=== PATIENT | female | born 1975 | race Caucasian/White ===

== ENCOUNTER 2017-12-27 22:21 | Emergency (ER) | payer SELFPAY ==
[~2017-12-27] VITALS: Ht 162.6 cm; Wt 68.0 kg
[~2017-12-27 22:21] MED LIST: AMOX500C2 PO; BELLADONNA ALKALOIDS; CLAR-19 PO; DEPO PROVERA; HYDR-3454 PO; HYDR-3583; HYDR1CAP2; HYOS0.1216 PO; ONDA-42 SL; PANT20TA2 PO; PROP1TAB77; RABE20TA PO; SIME125C
[2017-12-27] MEDS ORDERED: KETOROLAC 30 MG/ML VIAL IM ONE (22:45)
--- NOTE | 2017-12-27 22:48 | ED Fall/Injury ---
General Stated Complaint: FALL Source: patient, family, EMS Exam Limitations: no limitations History of Present Illness Date Seen by Provider: Dec 27, 2017 Time Seen by Provider: 22:28 Initial Comments Patient presents to the ER by EMS with a chief complaint she had a fall that was witnessed by family all walking [facility] the [facility] she tripped on her sandal landed on her right side and was unconscious after striking the back of her head for about 10 seconds. Patient's very hazy on the details. She does not take blood thinners or any medications or contraceptives. She does not member her last menstrual period. She's having pain in the back of her head and neck as well as old on her right side and her right extremities and right ribs. She's having no shortness of breath, cough, fevers, chills, nausea, vomiting. She does not have any abdominal pain. She has not been sick recently. She denies any dysuria. She denies smoking drinking or using recreational drugs. She has not had any recent falls. Allergies and Home Medications Allergies Coded Allergies: NKANo Known Allergies (Unverified Allergy, Mild, 08/23/09) Home Medications Hydrocodone Bit/Acetaminophen 1 Each Tablet, 1 TAB PO Q4H PRN for PAIN Prescribed by: SAROJ JALLOH on 10/11/13 1415 Hyoscyamine Sulfate 0.125 Mg Tab, 1-2 EACH PO Q4HR PRN PRN for ABDOMINAL PAIN Prescribed by: TEAGAN BAEZ on 05/18/14 1231 Ondansetron Hcl 4 Mg Tab, 4 MG SL Q4H FOR NAUSEA AND VOMITING Prescribed by: TEAGAN BAEZ on 05/18/14 1231 Pantoprazole Sodium 20 Mg Tablet.dr, 20 MG PO BID Prescribed by: TEAGAN BAEZ on 05/18/14 1231 Patient Home Medication List Home Medication List Reviewed: Yes Review of Systems Constitutional: No chills, No diaphoresis Eyes: Denies Blurred Vision, Denies Pain, Denies Photophobia Ears, Nose, Mouth, Throat: denies ear pain, denies nose pain, denies mouth pain Respiratory: No cough, No short of breath Cardiovascular: No chest pain, No edema Gastrointestinal: No abdominal pain, No constipation, No diarrhea, No nausea Genitourinary: No discharge, No dysuria : No (negative bedside urine test) Musculoskeletal: No back pain; joint pain (right upper extremity and right leg) , neck pain Skin: No pruritus, No rash Past [id number]-[id number]-[id number] Hx Patient Social History Alcohol Use: Denies Use Recreational Drug Use: No Smoking Status: Never a Smoker Immunizations Up To Date Tetanus Booster (TDap): Unknown Date of Pneumonia Vaccine: Apr 24, 2012 Date of Influenza Vaccine: Jul 25, 2013 Past Medical History Reproductive Disorders: No Physical Exam Vital Signs Vital Signs - First Documented 12/27/17 22:21 Temp 97.9 Pulse 69 Resp 18 B/P (MAP) 118/86 (97) O2 Delivery Room Air Capillary Refill : General Appearance: WD/WN, no apparent distress Neck: normal inspection; No tender lateral; tender midline (C2 through C4), other (C-spine c-collar in place) Cardiovascular: normal peripheral pulses, regular rate, rhythm, no edema, no murmur Respiratory: lungs clear, normal breath sounds, no respiratory distress, no accessory muscle use, other (right mid axillary ribs tender to palpation) Gastrointestinal: normal bowel sounds, non tender, soft Pelvic: normal external exam, other (no movement or tenderness on examination) Back: normal inspection, no vertebral tenderness Extremities: normal range of motion, non-tender, normal inspection, no pedal edema, no calf tenderness, normal capillary refill, other (few very superficial abrasions on elbows bilaterally) Neurologic/Psychiatric: education rn II-XII nml as tested, no motor/sensory deficits, alert, normal mood/affect, oriented x 3 Skin: normal color, warm/dry [place] Coma Score Best Eye Response: (4) Open Spontaneously Best Verbal Response: (5) Oriented Best Motor Response: (6) Obeys Commands [place] Total: 15 Progress/Results/Core Measures Results/Orders Lab Results Laboratory Tests Test 12/27/17 22:38 12/27/17 22:48 Range/Units Urine Color YELLOW Urine Clarity SLIGHTLY CLOUDY Urine pH 6 5-9 Urine Specific [place] 1.025 H 1.016-1.022 Urine Protein 1+ H NEGATIVE Urine Glucose (UA) NEGATIVE NEGATIVE Urine Ketones NEGATIVE NEGATIVE Urine Nitrite NEGATIVE NEGATIVE Urine Bilirubin NEGATIVE NEGATIVE Urine Urobilinogen NORMAL NORMAL MG/DL Urine Leukocyte Esterase 3+ H NEGATIVE Urine RBC (Auto) 2+ H NEGATIVE Urine RBC 2-5 H /HPF Urine WBC 10-25 H /HPF Urine Squamous Epithelial Cells 25-50 H /HPF Urine Crystals NONE /LPF Urine Bacteria MODERATE H /HPF Urine Casts NONE /LPF Urine Mucus NEGATIVE /LPF Urine Culture Indicated YES Urine Opiates Screen NEGATIVE NEGATIVE Urine Oxycodone Screen NEGATIVE NEGATIVE Urine Methadone Screen NEGATIVE NEGATIVE Urine Propoxyphene Screen NEGATIVE NEGATIVE Urine Barbiturates Screen NEGATIVE NEGATIVE Ur Tricyclic Antidepressants Screen NEGATIVE NEGATIVE Urine Phencyclidine Screen NEGATIVE NEGATIVE Urine Amphetamines Screen NEGATIVE NEGATIVE Urine Methamphetamines Screen NEGATIVE NEGATIVE Urine Benzodiazepines Screen NEGATIVE NEGATIVE Urine Cocaine Screen NEGATIVE NEGATIVE Urine Cannabinoids Screen NEGATIVE NEGATIVE White Blood Count 6.9 4.3-11.0 10^3/uL Red Blood Count 4.76 4.35-5.85 10^6/uL Hemoglobin 14.1 11.5-16.0 G/DL Hematocrit 41 35-52 % Mean Corpuscular Volume 87 80-99 FL Mean Corpuscular Hemoglobin 30 25-34 PG Mean Corpuscular Hemoglobin Concent 34 32-36 G/DL Red Cell Distribution Width 14.0 10.0-14.5 % Platelet Count 279 130-400 10^3/uL Mean Platelet Volume 10.4 7.4-10.4 FL Sodium Level 140 135-145 MMOL/L Potassium Level 4.0 3.6-5.0 MMOL/L Chloride Level 109 H 98-107 MMOL/L Carbon Dioxide Level 19 L 21-32 MMOL/L Anion Gap 12 5-14 MMOL/L Blood Urea Nitrogen 12 7-18 MG/DL Creatinine 0.80 0.60-1.30 MG/DL Estimat Glomerular Filtration Rate > 60 BUN/Creatinine Ratio 15 Glucose Level 96 70-105 MG/DL Calcium Level 9.4 8.5-10.1 MG/DL Total Bilirubin 0.3 0.1-1.0 MG/DL Aspartate Amino Transf (AST/SGOT) 24 5-34 U/L Alanine Aminotransferase (ALT/SGPT) 23 0-55 U/L Alkaline Phosphatase 74 40-136 U/L Total Protein 7.0 6.4-8.2 GM/DL Albumin 4.1 3.2-4.5 GM/DL My Orders Orders - PREETI AYOUB Urine Bedside (12/27/17 22:39) Ct Head/Cervical Spine Wo (12/27/17 22:39) Chest Pa/Lat (2 View) (12/27/17 22:39) Cbc No Diff (12/27/17 22:39) Comprehensive Metabolic Panel (12/27/17 22:39) Drug Screen Stat (Urine) (12/27/17 22:39) Ua Culture If Indicated (12/27/17 22:39) Ketorolac Injection (Toradol Injection) (12/27/17 22:45) Urine Culture (12/27/17 22:38) Medications Given in ED Current Medications Medications Dose Ordered Sig/Gerald Route Start Time Stop Time Status Last Admin Dose Admin Ketorolac Tromethamine 10 mg ONCE ONCE IM 12/27/17 22:45 12/27/17 22:46 DC 12/27/17 22:52 10 MG Vital Signs/I&O 12/27/17 22:21 Temp 97.9 Pulse 69 Resp 18 B/P (MAP) 118/86 (97) O2 Delivery Room Air Progress Progress Note #1: Time: 22:46 Progress Note Bedside urine is negative. We'll get a CT scan of her C-spine and head. We have discussed risks benefits and alternatives to doing observation versus imaging and she would prefer imaging. We did chest x-ray since she's having some tenderness on her ribs. Everything else is very minor. She is wearing some kind of corset so after we get the C-spine cleared and we will get the chest x-ray. We'll give her Toradol for her pain. Progress Note #2: Time: 23:25 Progress Note Patient's headache was improved minorly by the Toradol. She is normal or having any tenderness in her rib cage and so she has declined chest x-ray. We will have nursing get her up and walk around the ER if she does okay with done some teaching on concussion and we'll let her go home with a handout on concussion management. C-collar was discontinued at 11:15 PM. Diagnostic Imaging Diagonstic Imaging: CT Plain Films/CT/US/NM/MRI: c-spine, head (without contrast) Comments No acute calvarial fracture or C-spine fracture, alignment or subluxation. No intracranial hemorrhage, midline shift, mass effect, tumor. Reviewed: Reviewed by Me Departure Impression Primary Impression: Fall Qualified Codes: W19.XXXA - Unspecified fall, initial encounter Additional Impression: Concussion Qualified Codes: S06.0X1A - Concussion with loss of consciousness of 30 minutes or less, initial encounter Disposition: 01 HOME, SELF-CARE Condition: Stable Departure-Patient Inst. Decision time for Depature: 23:27 Referrals: [facility] (PCP/Family) Primary Care Physician Patient Instructions: Concussion, Adult (DC) Add. Discharge Instructions: Drink plenty of fluids go home get some sleep. Use Tylenol or Motrin as necessary for headache. If you have symptoms of a concussion including headache , blurry vision, off balance, nausea he should discontinue which are doing and get some Tylenol or Motrin, water and go get some sleep and not resume activity until the next day. Work/School Note: Work Release Form Date Seen in the Emergency Department: Dec 27, 2017 Return to Work: Dec 28, 2017 Restrictions: No Restrictions Other Restrictions Listed Below: If concussion sign: Headache, nausea, off balance, blurry vision go home. Restrictions: Resume work the next day after concussion signs. Copy Copies To 1: MARLENI BOYD TITUS J Dec 27, 2017 22:48
[2017-12-27 22:53] LABS: BILIRUBIN,URINE NEGATIVE (NEGATIVE); CLARITY,URINE SLIGHTLY CLOUDY; COLOR,URINE YELLOW; GLUCOSE, URINE (UA) NEGATIVE (NEGATIVE); KETONES,URINE NEGATIVE (NEGATIVE); LEUKOCYTE ESTERASE ,URINE 3+ (NEGATIVE); NITRITE,URINE NEGATIVE (NEGATIVE); PH,URINE 6 (5-9); PROTEIN,URINE 1+ (NEGATIVE); UROBILINOGEN,URINE NORMAL (NORMAL)
[2017-12-27 22:57] LABS: HEMOGLOBIN 14.1 G/DL (11.5-16.0); MEAN PLATELET VOLUME 10.4 FL (7.4-10.4); RED BLOOD COUNT 4.76 10^6/uL (4.35-5.85); WHITE BLOOD COUNT 6.9 10^3/uL (4.3-11.0)
[2017-12-27 23:07] LABS: BACTERIA,URINE MODERATE /HPF; SQUAMOUS EPITHELIAL CELL,UR 25-50 /HPF
[2017-12-27 23:08] LABS: AMPHETAMINE SCREEN, URINE NEGATIVE (NEGATIVE); BARBITURATE SCREEN URINE NEGATIVE (NEGATIVE); BENZODIAZEPINES SCREEN URINE NEGATIVE (NEGATIVE); CANNABINOID SCREEN, URINE NEGATIVE (NEGATIVE); COCAINE SCREEN URINE NEGATIVE (NEGATIVE); METHADONE STAT NEGATIVE (NEGATIVE); METHAMPHETAMINE SCREEN URINE S NEGATIVE (NEGATIVE); OPIATE SCREEN URINE NEGATIVE (NEGATIVE); OXYCODONE STAT NEGATIVE (NEGATIVE); PROPOXYPHENE STAT NEGATIVE (NEGATIVE); TRICYCLIC ANTIDEPRESSANTS SCRE NEGATIVE (NEGATIVE)
[2017-12-27 23:16] LABS: ALANINE AMINOTRANSFERASE 23 U/L (0-55); ALBUMIN 4.1 GM/DL (3.2-4.5); ALKALINE PHOSPHATASE 74 U/L (40-136); BILIRUBIN,TOTAL 0.3 MG/DL (0.1-1.0); BUN/CREATININE RATIO 15; CALCIUM 9.4 MG/DL (8.5-10.1); CARBON DIOXIDE 19 MMOL/L (21-32); CHLORIDE 109 MMOL/L (98-107); GFR ESTIMATED > 60; GLUCOSE 96 MG/DL (70-105); SODIUM 140 MMOL/L (135-145)
[2017-12-27] MEDS ORDERED: ACETAMINOPHEN 500 MG TAB (TYLENOL) PO ONE (23:30)
[2017-12-27 23:35] VITALS: BP 122/92
--- NOTE | 2017-12-28 08:31 | Diagnostic Imaging Report ---
PROCEDURE: CT head and CT cervical spine without contrast. TECHNIQUE: Multiple contiguous axial images were obtained through the brain and cervical spine without the use of intravenous contrast. Sagittal and coronal reformations through the cervical spine were then performed. INDICATION: Fall. Trauma to head. Head and neck pain. COMPARISON: None FINDINGS: CT head: Ventricles and cortical sulci are normal in size and contour. There is no midline shift or mass-effect. No acute intra-axial hemorrhage is seen. There are no abnormal areas of increased or decreased density to suggest acute hemorrhage or edema. No extra-axial masses or collections are present. The bony calvarium is intact. The visualized paranasal sinuses are unremarkable. The mastoid air cells are clear. CT cervical spine: Static alignment of the cervical spine is maintained. There is no significant anteroretrolisthesis. There is no evidence of jumped facets. Vertebral body heights are preserved. There is no evidence of acute fracture. No bony fragments are seen within the spinal canal. There are minimal multilevel degenerative changes consisting of intervertebral disc height loss with slight disc bulges. There is no significant bony spinal canal stenosis. Pre-and paravertebral soft tissue structures are unremarkable. Included portions of the lung apices are clear. IMPRESSION: 1. No acute intracranial abnormality. No CT evidence of mass, acute infarct or intracranial hemorrhage. 2. No CT evidence of acute fracture or dislocation of cervical spine. Dictated by: Dictated on workstation # [id number]
== END 2017-12-27 23:35 | disposition home or self-care (01) ==
LOC: EDUNIT# 22:21 → ER 22:22
DX: S06.0X1A Concussion with loss of consciousness of 30 minutes or less, initial encounter (principal); W01.198A Fall on same level from slipping, tripping and stumbling with subsequent striking against other object, initial encounter
CPT/HCPCS: 36415; 70450; 72125; 80053; 80306; 81000; 84703; 85027; 87088; 96372

== ENCOUNTER 2021-06-15 05:30 | Outpatient (CLI) | payer BC ==
[~2021-06-15] VITALS: Ht 152.4 cm; Wt 71.4 kg
== END 2021-06-15 14:07 | disposition home or self-care (01) ==
LOC: PREOP 05:30
PROVIDERS: ATTEND Obstetrics & Gynecology
DX: Z01.818 Encounter for other preprocedural examination (principal)

== ENCOUNTER 2021-06-22 06:54 | Day surgery (SDC) | payer BC ==
[2021-06-22] VITALS (12 sets, daily range): BP systolic 84–128; BP diastolic 51–89
[~2021-06-22] VITALS: Ht 152.4 cm; Wt 71.4 kg
[2021-06-22] MEDS ORDERED: MIDAZOLAM 2 MG/2 ML (VERSED) VIAL ONE (07:09)
[2021-06-22] MEDS ORDERED: fentaNYL INJ 100 MCG/2 ML AMP ONE (07:09)
[2021-06-22] MEDS ORDERED: LIDOCAINE PF 2% 5 ML (XYLOCAINE) VIAL ONE (07:09)
[2021-06-22] MEDS ORDERED: proPOfol 200 MG/20 ML (DIPRIVAN) VIAL IV ONE (07:09)
[2021-06-22] MEDS ORDERED: ONDANSETRON 4 MG/2 ML (SDV) Z0FRAN ONE (07:09)
[2021-06-22] MEDS ORDERED: BUPIVACAINE 0.25% 30 ML (SENSORCAINE) VIAL ONE (07:19)
[2021-06-22] MEDS ORDERED: LACTATED RINGERS 1,000 ML IV PRN (07:30)
[2021-06-22] MEDS ORDERED: FAMOTIDINE 20MG/2ML IV (PEPCID) IVP ONE (07:45)
[2021-06-22] MEDS ORDERED: ONDANSETRON 4 MG/2 ML (SDV) Z0FRAN IVP ONE (07:45)
[2021-06-22 08:44] LABS: BASOPHILS % (AUTO) 1 % (0-10); EOSINOPHILS # (AUTO) 0.1 10^3/uL (0.0-0.3); EOSINOPHILS % (AUTO) 2 % (0-10); HEMATOCRIT 40 % (35-52); HEMOGLOBIN 13.4 g/dL (11.5-16.0); LYMPHOCYTES % (AUTO) 33 % (12-44); MEAN CORPUSCULAR HEMOGLOBIN 29 pg (25-34); MEAN CORPUSCULAR HGB CONC 34 g/dL (32-36); MEAN CORPUSCULAR VOLUME 87 fL (80-99); MONOCYTES # (AUTO) 0.5 10^3/uL (0.0-1.0); MONOCYTES % (AUTO) 8 % (0-12); NEUTROPHILS # (AUTO) 3.5 10^3/uL (1.8-7.8); NEUTROPHILS % (AUTO) 57 % (42-75); PLATELET COUNT 259 10^3/uL (130-400); WHITE BLOOD COUNT 6.2 10^3/uL (4.3-11.0)
[2021-06-22] MEDS ORDERED: SEVOFLURANE (ULTANE) 15 ML INHAL SOLN ONE (09:12)
[2021-06-22] MEDS ORDERED: HYDROcodone/APAP 5 MG/325 MG (LORTAB) TAB PO PRN (09:15)
[2021-06-22] MEDS ORDERED: KETOROLAC 30 MG/ML VIAL IVP ONE ×2 (09:15→09:30)
[2021-06-22] MEDS ORDERED: ONDANSETRON 4 MG/2 ML (SDV) Z0FRAN IVP PRN ×2 (09:15→09:30)
[2021-06-22] MEDS ORDERED: D5 LR IV SOLUTION 1,000 ML IV SCH (09:15)
[2021-06-22] MEDS ORDERED: IBUP-1773 PO (09:16)
--- NOTE | 2021-06-22 09:16 | Discharge Inst-Women's Service ---
Discharge Inst-Women's Serv Depart Medication/Instructions New, Converted or Re-Newed RX: Transmitted to Pharmacy Problems Reviewed?: Yes Consults/Follow Up Additional Follow Up: Yes Orders/Referrals Dr. Thompson or Dodie in 7-10 days Activity Activity: Activity as Tolerated Driving Instructions: No Driving for 1 Week NO SMOKING: NO SMOKING Nothing Inside Vagina: No Douching, No [place], No Tampons Diet Discharge Diet: No Restrictions Symptoms to Report to : Bleeding Excessive, Pain Increased, Fever Over 101 Degrees F, Vaginal Bleeding Increase, Questions/Concerns For Any Problems or Questions: Contact Your Physician ERLINDA THOMPSON DO Jun 22, 2021 09:16
--- NOTE | 2021-06-22 09:17 | Progress Note-Pre Operative ---
Pre-Operative Progress Note H&P Reviewed The H&P was reviewed, patient examined and no changes noted. Date Seen by Provider: Jun 22, 2021 Time Seen by Provider: 08:35 Date H&P Reviewed: Jun 22, 2021 Time H&P Reviewed: 08:40 Pre-Operative Diagnosis: AUB, Extensive tubal metaplasia ERLINDA THOMPSON DO Jun 22, 2021 09:17
[2021-06-22] MEDS ORDERED: MEPERIDINE (DEMEROL) INJ 50 MG/ML IVP ONE (09:30)
[2021-06-22] MEDS ORDERED: morphine INJ 10 MG/ML 1ML (SYR OR VIAL) IVP ONE (09:30)
--- NOTE | 2021-06-22 12:46 | OPERATIVE REPORT ---
DATE OF SERVICE: 06/22/2021 PREOPERATIVE DIAGNOSES: 1. A 46-year-old female with abnormal uterine bleeding. 2. Extensive tubal metaplasia on endometrial biopsy. POSTOPERATIVE DIAGNOSES: 1. A 46-year-old female with abnormal uterine bleeding. 2. Extensive tubal metaplasia on endometrial biopsy. PROCEDURE: D and C, hysteroscopy with resection of endometrial polyp. SURGEON: Erlinda Thompson DO ANESTHESIA: LMA general. ESTIMATED BLOOD LOSS: Minimal. URINE OUTPUT: 150 mL drained at start of procedure. FLUIDS: 700 mL lactated Ringer's solution. SPECIMEN SENT: Endometrial curettings. FINDINGS: Grossly normal-appearing external female genitalia with a grade II to III cystocele, grade II to III rectocele as well as some moderate descent of the uterus. There is an anterior fundal wall endometrial extension suspicious for endometrial polyp. Otherwise, grossly normal appearing endometrial cavity. INDICATIONS FOR PROCEDURE: This 40-year-old female is a patient who had sought care in my office for episode of heavy postmenopausal bleeding. She had gone more than a year without a period and then had a heavy bleeding episode. Upon evaluation in my office, we decided to proceed with endometrial biopsy. Endometrial biopsy showed normal endometrium with the exception of extensive tubal metaplasia. Due to this arm and these findings, I discussed with the patient proceeding with D and C, hysteroscopy. Risks of procedure were discussed with the patient in detail including risk of bleeding, infection, damage to surrounding structures including, but not limited to the uterus itself. After all questions were answered in the preoperative area, consent was obtained, the patient was taken to the operating room. OPERATIVE REPORT IN DETAIL: Once in the operating room, anesthesia was found to be adequate, placed in dorsal lithotomy position, prepped and draped in normal sterile fashion. A timeout was performed. The bladder was then drained using straight catheterization. A weighted speculum was inserted to the patient's vagina. Right angle retractor was utilized. Cervix was grasped at 12 o'clock position using a long Allis clamp. I performed paracervical block at 3 and 9 o'clock positions using 0.25% Marcaine. Care was taken to aspirate for injecting 5 mL injected into each site. I then gently sound the uterine cavity, depth was found to be 7 cm. I then gently dilated the cervix using dilators to allow placement of the hysteroscope. Once the hysteroscope was then placed and used normal saline as my visual medium and the TruClear fluid management system with minimal deficit noted at the end of the procedure. I am able to visualize all my endometrial findings as described in my findings above. I then removed the hysteroscope and performed a gentle curettage of the endometrium. Minimal to scant amount of tissue is recovered from doing this. I then therefore take another look with the hysteroscope. Once I am able to distend the uterine cavity, the polyp is still persistent. Therefore, I think hysteroscopic resection handpiece and resected the endometrial polyp under direct visualization of the hysteroscope. Once this was done, there was no active bleeding noted from any of my dissection planes. I removed all other instruments from the patient's vagina. The patient tolerated the procedure well and sent to recovery in stable condition. Lap and sponge counts were correct at the end of the procedure. Instrument counts correct as well. Job ID: [id number] DocumentID: [id number] Dictated Date: 06/22/2021 09:35:12 Press Room Supervisor Date: 06/22/2021 12:45:53 Dictated By: ERLINDA THOMPSON DO
== END 2021-06-22 11:30 | disposition home or self-care (01) ==
LOC: SDC 06:54
PROVIDERS: ATTEND Obstetrics & Gynecology
DX: N93.9 Abnormal uterine and vaginal bleeding, unspecified (principal); N84.0 Polyp of corpus uteri; Z90.49 Acquired absence of other specified parts of digestive tract
CPT/HCPCS: 36415; 84703; 85025; 87081; 88305

== ENCOUNTER → 2022-03-16 | Outpatient (CLI) | payer BC ==
[~2022-03-16] MED LIST changes: +IBUP-1773 PO
== END ==
LOC: CARD 12:48
PROVIDERS: ATTEND Internal Medicine Cardiovascular Disease
DX: I10 Essential (primary) hypertension (principal); I25.10 Atherosclerotic heart disease of native coronary artery without angina pectoris
CPT/HCPCS: 93306

== ENCOUNTER → 2022-03-24 | Outpatient (CLI) | payer BC ==
[~2022-03-24] VITALS: Ht 152 cm; Wt 69.0 kg
[~2022-03-24] MED LIST changes: +CATHETER FLUSH 10 ML SYR IVP PRN
[2022-03-24 12:58] VITALS: BP 134/73
--- NOTE | 2022-03-24 17:09 | Cardiology Stress Test Report ---
Stress Test Report Date of Procedure/Referring: Date of Procedure: Mar 24, 2022 [facility] Admitting Physician Admitting Physician: Attending Physician: Arie Hollingsworth MD Indications: HTN Baseline Heart Rate: 48 Baseline Blood Pressure: Blood Pressure Systolic: 134 Blood Pressure Diastolic: 73 Vital Signs Date Time Temp Pulse Resp B/P (MAP) Pulse Ox O2 Delivery O2 Flow Rate FiO2 03/24/22 12:58 65 16 134/73 (93) 98 Room Air Baseline Vital Signs Vital Signs Date Time Temp Pulse Resp B/P (MAP) Pulse Ox O2 Delivery O2 Flow Rate FiO2 03/24/22 12:58 65 16 134/73 (93) 98 Room Air Baseline EKG: Baseline EKG: NSR Summary: After explaining the procedure and details to the patient, she signed the consent and was brought to the stress nuclear laboratory. Patient exercised on standard El protocol, EKG, heart rate and blood pressure were monitored continuously, resting and stress doses of radio tracer were injected, imaging was acquired and reviewed in the short axis, horizontal long axis and vertical long axis views Patient was able to exercise for a total of 9 minutes on El protocol, METs 10.5 Maximum heart rate 171 Maximum blood pressure 187/82 Stress EKG, Minimal nondiagnostic changes Recovery EKG, Return to baseline TID: 0.95 SSS: 4 SDS: 3 EF: 69 Conclusion: 1. Excellent exercise tolerance for a total of 9 minutes on standard El protocol, 10.5 METS achieving 99% of maximal expected heart rate 2. Baseline sinus bradycardia with appropriate heart rate response to exercise return to baseline during recovery 3. Hypertensive response to exercise return to baseline during recovery 4. Nondiagnostic EKG changes with exercise return to baseline during recovery 5. Breast attenuation with typical female pattern, no significant ischemia or infarction were noted on SPECT images 6. Normal left ventricular size, ejection fraction 69% Copy Copies To 1: [facility]/ ARIE HOLLINGSWORTH MD Mar 24, 2022 17:08
== END ==
LOC: CARD 12:15
PROVIDERS: ATTEND Internal Medicine Cardiovascular Disease
DX: I10 Essential (primary) hypertension (principal); I25.10 Atherosclerotic heart disease of native coronary artery without angina pectoris
CPT/HCPCS: 78452; 93017; A9502

== ENCOUNTER → 2023-06-28 | Outpatient (CLI) | payer BC ==
[~2023-06-28] MED LIST changes: -CATHETER FLUSH 10 ML SYR IVP PRN
== END | disposition home or self-care (01) ==
LOC: PREOP 05:29
PROVIDERS: ATTEND Obstetrics & Gynecology
DX: Z01.818 Encounter for other preprocedural examination (principal)